=== PATIENT | male | born 1975 | race African-American/Black ===

== ENCOUNTER 2020-02-06 23:26 | Emergency (ER) | payer SELFPAY ==
[~2020-02-06] VITALS: Ht 190.5 cm; Wt 89.4 kg
[2020-02-06 23:49] VITALS: Ht 190.5 cm; Wt 89.4 kg
[2020-02-07 00:49] VITALS: BP 150/87
== END 2020-02-07 00:49 | disposition home or self-care (01) ==
LOC: ED 23:26
DX: K04.7 Periapical abscess without sinus (principal); J40 Bronchitis, not specified as acute or chronic; I10 Essential (primary) hypertension